=== PATIENT | female | born 1975 | race American Indian/Alaskan Native ===

== ENCOUNTER 2021-06-28 07:14 | Emergency (ER) | payer OTHER ==
[2021-06-28] MEDS ORDERED: THIAMINE 100 MG, FOLIC ACID 1 MG, MULTIPLE VITAMIN INJ, ADULT 10 ML in SODIUM CHLORIDE ... IV NR (08:00)
[2021-06-28 08:29] LABS: Basophils % (Auto) 0.6 % (0.0-1.8); Eosinophils # (Auto) 0.1 K/mm3 (0.0-0.4); Eosinophils % (Auto) 1.9 % (0.0-4.3); Hematocrit 39.5 % (30.3-42.9); Hemoglobin 13.6 gm/dl (10.1-14.3); Lymphocytes % (Auto) 47.5 % (13.4-35.0); Mean Corpuscular HGB Conc 34 % (30-34); Mean Corpuscular Volume 93 fl (79-97); Monocytes # (Auto) 0.5 K/mm3 (0.0-0.8); Monocytes % (Auto) 7.8 % (0.0-7.3); Platelet Count 259 K/mm3 (140-440); Red Blood Count 4.23 M/mm3 (3.65-5.03); Red Cell Distribution Width 13.7 % (13.2-15.2)
[2021-06-28 08:34] LABS: Amphetamine Screen,Urine Negative; Benzodiazepines Screen,Urine Negative; Cannabinoid Screen,Urine Negative; Cocaine Screen,Urine Negative; Methadone Screen,Urine Negative; Opiate Screen,Urine Negative
[2021-06-28 08:38] LABS: Alanine Aminotransferase 26 units/L (7-56); Albumin 3.9 g/dL (3.9-5); BUN/Creatinine Ratio 13; Blood Urea Nitrogen 9 mg/dL (7-17); Calcium 8.8 mg/dL (8.4-10.2); Hemolysis Index 10
[2021-06-28] MEDS ORDERED: LORazepam 2 MG/ML VIAL IV ONE (09:30)
--- NOTE | 2021-06-28 09:38 | Emergency Department Report ---
ED Alcohol HPI - General Chief Complaint: Medical Clearance Stated Complaint: MEDICAL CLEARANCE Time Seen by Provider: 06/28/21 07:39 Source: patient Mode of arrival: Ambulatory Limitations: No Limitations - History of Present Illness Initial Comments: 46-year-old female with a past medical history of hypertension and alcohol abuse presents to the hospital requesting help with alcohol detox. Patient states she drinks approximately 1 bottle of wine per day and occasional vodka use. Patient has a history of alcoholism in her family. She increase her alcohol intake when she moved to [place] at the age of [age] years old. She has a history of alcohol withdrawal tremors but denies seizures. She denies suicidal, homicidal ideation or psychosis. She is requesting outpatient detox because she has 8-year-old daughter to take care of at home. Last drink was last night. Patient has history of hypertension and compliant with her amlodipine 10 mg and hydrochlorothiazide 25 mg which she took prior to arrival. She feels mildly tremulous at this time with a mild headache. Patient took Excedrin prior to arrival. Patient called [facility] prior to arrival and she was advised to come to the ER for medical clearance - Related Data Home Medications Medication Instructions Recorded Confirmed Last Taken amLODIPine [Norvasc] 10 mg PO DAILY 06/28/21 06/28/21 Unknown hydroCHLOROthiazide [HCTZ] 25 mg PO QDAY 06/28/21 06/28/21 Unknown Previous Rx's Medication Instructions Recorded Last Taken Type chlordiazePOXIDE [Librium] 25 mg PO Q6H 4 Days #20 capsule 06/28/21 Unknown Rx Allergies Allergy/AdvReac Type Severity Reaction Status Date / Time No Known Allergies Allergy Unverified 06/28/21 08:40 ED Review of Systems ROS: Stated complaint: MEDICAL CLEARANCE Other details as noted in HPI Comment: All other systems reviewed and negative ED Past Medical Hx - Past Medical History Hx Hypertension: Yes Hx Headaches / Migraines: Yes - Surgical History Past Surgical History?: Yes Hx Cholecystectomy: Yes Additional Surgical History: gastric bypass, skin removal surgery - Social History Smoking Status: Never Smoker Substance Use Type: Alcohol - Medications Home Medications: Home Medications Medication Instructions Recorded Confirmed Last Taken Type amLODIPine [Norvasc] 10 mg PO DAILY 06/28/21 06/28/21 Unknown History chlordiazePOXIDE [Librium] 25 mg PO Q6H 4 Days #20 capsule 06/28/21 Unknown Rx hydroCHLOROthiazide [HCTZ] 25 mg PO QDAY 06/28/21 06/28/21 Unknown History ED Physical Exam - General Limitations: No Limitations - Other Other exam information: General: No acute distress Head: Atraumatic Eyes: normal appearance ENT: Moist mucous membranes Neck: Normal appearance, no midline tenderness Chest: Clear to auscultation bilaterally CV: Regular rate and rhythm Abdomen: Soft, normal bowel sounds, nontender, nondistended, no rebound or guarding Back: Normal inspection Extremity: Normal inspection, full range of motion Neuro: Alert O x 3, no facial asymmetry, speech clear, no gross motor sensory deficit. Mild tremor Psych: Appropriate behavior Skin: No rash ED Course Vital Signs 06/28/21 06/28/21 06/28/21 07:28 08:18 08:23 Temperature 98.1 F Pulse Rate 88 84 Respiratory 16 18 Rate Blood Pressure Blood Pressure 206/117 194/120 [Right] O2 Sat by Pulse 99 99 99 Oximetry 06/28/21 06/28/21 06/28/21 08:31 08:45 09:01 Temperature Pulse Rate Respiratory Rate Blood Pressure 194/120 194/120 187/109 Blood Pressure [Right] O2 Sat by Pulse 98 98 98 Oximetry 06/28/21 06/28/21 06/28/21 09:15 09:31 09:45 Temperature Pulse Rate 81 81 78 Respiratory 15 19 14 Rate Blood Pressure 187/109 163/76 137/70 Blood Pressure [Right] O2 Sat by Pulse 99 99 98 Oximetry 06/28/21 06/28/21 06/28/21 09:52 10:01 10:15 Temperature Pulse Rate 76 78 Respiratory 15 14 Rate Blood Pressure 156/101 156/101 146/87 Blood Pressure [Right] O2 Sat by Pulse 99 100 Oximetry 06/28/21 06/28/21 06/28/21 10:31 10:45 11:01 Temperature Pulse Rate 78 77 108 H Respiratory 16 15 13 Rate Blood Pressure 142/85 131/82 133/85 Blood Pressure [Right] O2 Sat by Pulse 100 99 99 Oximetry 06/28/21 06/28/21 11:15 11:31 Temperature Pulse Rate 81 92 H Respiratory 15 15 Rate Blood Pressure 139/92 139/68 Blood Pressure [Right] O2 Sat by Pulse 97 100 Oximetry - Consultations Consultation #1: 06/28/21 10:26 Case discussed with the event for mental health. Patient does not require patient mental health consultation since she is not suicidal, homicidal, and does not meet criteria for inpatient treatment. She recommends that patient is medically clear, provide copy labs, and then go over to [place]. Since patient does not want inpatient admission and there may be a delay until she can be placed in outpatient program it is recommended that she is provided medications to prevent alcohol withdrawal until she can be treated by the psychiatrist ED Medical Decision Making - Lab Data Result diagrams: 06/28/21 08:02 06/28/21 08:02 Lab Results 06/28/21 06/28/21 06/28/21 Range/Units 08:01 08:01 08:02 WBC 6.2 (4.5-11.0) K/mm3 RBC 4.23 (3.65-5.03) M/mm3 Hgb 13.6 (10.1-14.3) gm/dl Hct 39.5 (30.3-42.9) % MCV 93 (79-97) fl MCH 32 (28-32) pg MCHC 34 (30-34) % RDW 13.7 (13.2-15.2) % Plt Count 259 (140-440) K/mm3 Lymph % (Auto) 47.5 H (13.4-35.0) % [place] % (Auto) 7.8 H (0.0-7.3) % Eos % (Auto) 1.9 (0.0-4.3) % Baso % (Auto) 0.6 (0.0-1.8) % Lymph # (Auto) 3.0 (1.2-5.4) K/mm3 [place] # (Auto) 0.5 (0.0-0.8) K/mm3 Eos # (Auto) 0.1 (0.0-0.4) K/mm3 Baso # (Auto) 0.0 (0.0-0.1) K/mm3 Seg Neutrophils % 42.2 (40.0-70.0) % Seg Neutrophils # 2.6 (1.8-7.7) K/mm3 Sodium (137-145) mmol/L Potassium (3.6-5.0) mmol/L Chloride (98-107) mmol/L Carbon Dioxide (22-30) mmol/L Anion Gap mmol/L BUN (7-17) mg/dL Creatinine (0.6-1.2) mg/dL Estimated GFR ml/min BUN/Creatinine Ratio % Glucose (65-100) mg/dL Calcium (8.4-10.2) mg/dL Magnesium (1.7-2.3) mg/dL Total Bilirubin (0.1-1.2) mg/dL AST (5-40) units/L ALT (7-56) units/L Alkaline Phosphatase (35-129) units/L Total Protein (6.3-8.2) g/dL Albumin (3.9-5) g/dL Albumin/Globulin Ratio % HCG, Qual (Negative) Urine Color Straw (Yellow) Urine Turbidity Clear (Clear) Urine pH 7.0 (5.0-7.0) Ur Specific [place] 1.011 (1.003-1.030) Urine Protein <15 mg/dl (Negative) mg/dL Urine Glucose (UA) Neg (Negative) mg/dL Urine Ketones Neg (Negative) mg/dL Urine Blood Neg (Negative) Urine Nitrite Neg (Negative) Urine Bilirubin Neg (Negative) Urine Urobilinogen < 2.0 (<2.0) mg/dL Ur Leukocyte Esterase Neg (Negative) Urine WBC (Auto) < 1.0 (0.0-6.0) /HPF Urine RBC (Auto) 2.0 (0.0-6.0) /HPF U Epithel Cells (Auto) < 1.0 (0-13.0) /HPF Urine Bacteria (Auto) 1+ (Negative) /HPF Urine Mucus Few /HPF Urine Opiates Screen Negative Urine Methadone Screen Negative Ur Barbiturates Screen Negative Ur Phencyclidine Scrn Negative Ur Amphetamines Screen Negative U Benzodiazepines Scrn Negative Urine Cocaine Screen Negative U Marijuana (THC) Screen Negative Drugs of Abuse Note Disclamer Plasma/Serum Alcohol (0-0.07) % 06/28/21 06/28/21 06/28/21 Range/Units 08:02 08:02 08:02 WBC (4.5-11.0) K/mm3 RBC (3.65-5.03) M/mm3 Hgb (10.1-14.3) gm/dl Hct (30.3-42.9) % MCV (79-97) fl MCH (28-32) pg MCHC (30-34) % RDW (13.2-15.2) % Plt Count (140-440) K/mm3 Lymph % (Auto) (13.4-35.0) % [place] % (Auto) (0.0-7.3) % Eos % (Auto) (0.0-4.3) % Baso % (Auto) (0.0-1.8) % Lymph # (Auto) (1.2-5.4) K/mm3 [place] # (Auto) (0.0-0.8) K/mm3 Eos # (Auto) (0.0-0.4) K/mm3 Baso # (Auto) (0.0-0.1) K/mm3 Seg Neutrophils % (40.0-70.0) % Seg Neutrophils # (1.8-7.7) K/mm3 Sodium 138 (137-145) mmol/L Potassium 3.5 L (3.6-5.0) mmol/L Chlor[place] 102.1 (98-107) mmol/L Carbon Dioxide 30 (22-30) mmol/L Anion Gap 9 mmol/L BUN 9 (7-17) mg/dL Creatinine 0.7 (0.6-1.2) mg/dL Estimated GFR > 60 ml/min BUN/Creatinine Ratio 13 % Glucose 90 (65-100) mg/dL Calcium 8.8 (8.4-10.2) mg/dL Magnesium 2.00 (1.7-2.3) mg/dL Total Bilirubin 0.30 (0.1-1.2) mg/dL AST 38 (5-40) units/L ALT 26 (7-56) units/L Alkaline Phosphatase 98 (35-129) units/L Total Protein 8.5 H (6.3-8.2) g/dL Albumin 3.9 (3.9-5) g/dL Albumin/Globulin Ratio 0.8 % HCG, Qual Negative (Negative) Urine Color (Yellow) Urine Turbidity (Clear) Urine pH (5.0-7.0) Ur Specific [place] (1.003-1.030) Urine Protein (Negative) mg/dL Urine Glucose (UA) (Negative) mg/dL Urine Ketones (Negative) mg/dL Urine Blood (Negative) Urine Nitrite (Negative) Urine Bilirubin (Negative) Urine Urobilinogen (<2.0) mg/dL Ur Leukocyte Esterase (Negative) Urine WBC (Auto) (0.0-6.0) /HPF Urine RBC (Auto) (0.0-6.0) /HPF U Epithel Cells (Auto) (0-13.0) /HPF Urine Bacteria (Auto) (Negative) /HPF Urine Mucus /HPF Urine Opiates Screen Urine Methadone Screen Ur Barbiturates Screen Ur Phencyclidine Scrn Ur Amphetamines Screen U Benzodiazepines Scrn Urine Cocaine Screen U Marijuana (THC) Screen Drugs of Abuse Note Plasma/Serum Alcohol < 0.01 (0-0.07) % - Medical Decision Making Patient presents to the hospital requesting alcohol detox with significant elevated blood pressure and signs of tremors on examination. No tachycardia. Patient treated with Ativan and IV labetalol with improvement and alcohol withdrawal symptoms as well as improvement in blood pressure. Patient's labs only significant for mild hypokalemia. Pt states she feels better. Patient will be discharged home with copy of her paperwork signify medical clearance for alcohol detox. Patient will be prescribed a Librium taper to help with alcohol withdrawal symptoms until she can be definitive managed by [facility] psychiatrist. CIWA score 2 at discharge Critical Care Time: No Critical care attestation.: If time is entered above; I have spent that time in minutes in the direct care of this critically ill patient, excluding procedure time. ED Disposition Clinical Impression: Alcoholism, Medical clearance for psychiatric admission, Uncontrolled hypertension Disposition: 01 HOME / SELF CARE / HOMELESS Is pt being admited?: No Does the pt Need Aspirin: No Condition: Stable Instructions: Alcohol Abuse and Dependence Information, Adult, Hypertension (ED), Managing Your Hypertension Additional Instructions: Take the medication as prescribed. Follow-up with your doctor or doctor/clinic provided. Return if symptoms worsen as indicated by your discharge instructions. Prescriptions: chlordiazePOXIDE [Librium] 25 mg PO Q6H 4 Days #20 capsule Referrals: PRIMARY MD ELKIN [Primary Care Provider] - 3-5 Days MD [facility] [Other] - KERI Time of Disposition: 12:38
[2021-06-28 11:22] LABS: Bacteria,Urine 1+ /HPF (Negative); Bilirubin,Urine NEG (Negative); Blood,Urine NEG (Negative); Color,Urine Straw (Yellow); Mucus,Urine FEW /HPF; Protein,Urine <15 mg/dL mg/dL (Negative); Urobilinogen,Urine < 2.0 mg/dL (<2.0); WBC,Urine < 1.0 /HPF (0.0-6.0)
[2021-06-28] MEDS ORDERED: POTASSIUM CHLORIDE ER 20 MEQ TAB PO ONE (12:00)
[2021-06-28 13:03] VITALS: BP 145/95
== END 2021-06-28 13:03 | disposition home or self-care (01) ==
LOC: ED 07:14
DX: F10.20 Alcohol dependence, uncomplicated (principal); Z13.30 Encounter for screening examination for mental health and behavioral disorders, unspecified; I10 Essential (primary) hypertension
CPT/HCPCS: 36415; 80053; 80307; 81001; 83735; 84703; 85025; 96365; 96366; 96375; 99284; J2060; J3411; J7030; 80320; G0480

== ENCOUNTER 2021-09-07 03:46 | Emergency (ER) | payer OTHER ==
[2021-09-07 03:52] VITALS: BP 175/102
--- NOTE | 2021-09-07 04:53 | Cat Scan Report ---
CT HEAD WITHOUT CONTRAST INDICATION / CLINICAL INFORMATION: Headache. TECHNIQUE: All CT scans at this location are performed using CT dose reduction for ALARA by means of automated exposure control. COMPARISON: None available. FINDINGS: HEMORRHAGE: None. EXTRA-AXIAL SPACES: Normal in size and morphology for the patient's age. VENTRICULAR SYSTEM: Normal in size and morphology for the patient's age. CEREBRAL PARENCHYMA: No significant abnormality. No acute territorial infarct. MIDLINE SHIFT / HERNIATION: None. CEREBELLUM / BRAINSTEM: No significant abnormality. ORBITS: Normal as visualized. SOFT TISSUES: No significant abnormality. SKULL: No significant abnormality. PARANASAL SINUSES / MASTOID AIR CELLS: Normal as visualized. ADDITIONAL FINDINGS: None. IMPRESSION: No acute intracranial abnormality. Signer Name: Vaughn Ordaz MD Signed: 09/07/2021 4:49 AM Workstation Name: [id number]
[2021-09-07 05:20] LABS: Basophils # (Auto) 0.1 K/mm3 (0.0-0.1); Basophils % (Auto) 1.4 % (0.0-1.8); Eosinophils % (Auto) 0.1 % (0.0-4.3); Hematocrit 38.9 % (30.3-42.9); Hemoglobin 12.9 gm/dl (10.1-14.3); Lymphocytes # (Auto) 2.2 K/mm3 (1.2-5.4); Lymphocytes % (Auto) 32.6 % (13.4-35.0); Mean Corpuscular HGB Conc 33 % (30-34); Mean Corpuscular Volume 96 fl (79-97); Monocytes # (Auto) 0.8 K/mm3 (0.0-0.8); Monocytes % (Auto) 11.5 % (0.0-7.3); Platelet Count 234 K/mm3 (140-440); Red Blood Count 4.05 M/mm3 (3.65-5.03)
[2021-09-07 05:35] LABS: Alanine Aminotransferase 27 units/L (7-56); Albumin 4.4 g/dL (3.9-5); Blood Urea Nitrogen 13 mg/dL (7-17); Calcium 9.1 mg/dL (8.4-10.2); Hemolysis Index 2
[2021-09-07 05:50] LABS: BUN/Creatinine Ratio 19
--- NOTE | 2021-09-07 06:36 | Emergency Department Report ---
ED Headache HPI - General Chief Complaint: High BP Stated Complaint: HIGHBP/HEADACHE/BURPING Time Seen by Provider: 09/07/21 05:59 - History of Present Illness Initial Comments: 46-year-old female with known history of hypertension asthma department complaining of a 1 to 2-day history of dull throbbing headache to the right side abdomen bowel across the head in conjunction with her hypertension. She reports no fevers, chills, sweats but have had some blurred vision and dizziness. Due to follow-up with primary care provider today but did not want to wait to figure out what was going on with a headache Quality: mild Head Injury Location: parietal Recent Head Trauma: no recent headache/trauma Associated Symptoms: denies: facial pain, fever/chills, sinus infection, stiff neck, vision changes Allergies/Adverse Reactions: Allergies No Known Allergies Allergy (Verified 09/07/21 03:52) Home Medications: Ambulatory Orders amLODIPine [Norvasc] 10 mg PO DAILY 06/28/21 chlordiazePOXIDE [Librium] 25 mg PO Q6H 4 Days #20 capsule 06/28/21 hydroCHLOROthiazide [HCTZ] 25 mg PO QDAY 06/28/21 ED Review of Systems ROS: Stated complaint: HIGHBP/HEADACHE/BURPING Other details as noted in HPI Comment: All other systems reviewed and negative ED Past Medical Hx - Past Medical History Hx Hypertension: Yes Hx Headaches / Migraines: Yes - Surgical History Past Surgical History?: Yes Hx Cholecystectomy: Yes Additional Surgical History: gastric bypass, skin removal surgery - Social History Smoking Status: Never Smoker Substance Use Type: Alcohol - Medications Home Medications: Home Medications Medication Instructions Recorded Confirmed Last Taken Type amLODIPine [Norvasc] 10 mg PO DAILY 06/28/21 06/28/21 Unknown History chlordiazePOXIDE [Librium] 25 mg PO Q6H 4 Days #20 capsule 06/28/21 Unknown Rx hydroCHLOROthiazide [HCTZ] 25 mg PO QDAY 06/28/21 06/28/21 Unknown History ED Physical Exam - General Limitations: No Limitations General appearance: alert, in no apparent distress - Head Head exam: Present: atraumatic, normocephalic - Eye Eye exam: Present: normal appearance, PERRL, EOMI, other. Absent: nystagmus Pupils: Present: normal accommodation - ENT ENT exam: Present: normal exam, mucous membranes moist - Neck Neck exam: Present: normal inspection, full ROM - Respiratory Respiratory exam: Present: normal lung sounds bilaterally. Absent: respiratory distress, wheezes, rales, rhonchi, chest wall tenderness, accessory muscle use, decreased breath sounds - Cardiovascular Cardiovascular Exam: Present: regular rate, normal rhythm. Absent: systolic murmur, diastolic murmur, rubs, gallop - GI/Abdominal GI/Abdominal exam: Present: soft, normal bowel sounds - Extremities Exam Extremities exam: Present: normal inspection - Back Exam Back exam: Present: normal inspection - Neurological Exam Neurological exam: Present: alert, oriented X3 - Psychiatric Psychiatric exam: Present: normal affect, normal mood - Skin Skin exam: Present: warm, dry, intact, normal color. Absent: rash ED Course Vital Signs 09/07/21 03:48 Temperature 98.6 F Pulse Rate 135 H Respiratory 17 Rate Blood Pressure 175/102 [Right] O2 Sat by Pulse 100 Oximetry ED Medical Decision Making - Lab Data Result diagrams: 09/07/21 04:48 09/07/21 04:48 - Radiology Data Radiology results: report reviewed CT scan of the head normal - Medical Decision Making This patient presents with a headache most consistent with nonemergent headache. Differential diagnosis includes migraine versus tension type headache. No head ache red flags. Neurologic exam without evidence of meningismus, focal neurologic findings.Based on the patient's history and physical there is very low clinical suspicion for significant intracranial pathology. The headache was NOT sudden onset, NOT maximal at onset, there are NO neurologic findings, the patient does NOT have a fever, the patient does NOT have any jaw claudication, the patient does NOT endorse a clotting disorder, patient DENIES any trauma or eye pain and the headache is NOT associated with dizziness or ataxia. Presentation not consistent with acute intracranial bleed to include SAH (lack of risk factors, headache history). Presentation not consistent with acute PERFORATING MACHINE OPERATOR infection to include meningitis or brain abscess, Temporal arteritis unlikely, as is acute angle closure glaucoma given history and physical findings. Presentation not consistent with other acute, emergent causes of headache at this time. Plan to treat symptomatically with pain medication. No indication for imaging/LP at this time. Plan: pain medication, CT brain normal, serial reassessment Critical care attestation.: If time is entered above; I have spent that time in minutes in the direct care of this critically ill patient, excluding procedure time. ED Disposition Clinical Impression: Normal CT scan of head, HTN (hypertension), Headache Disposition: HOME / SELF CARE / HOMELESS Is pt being admited?: No Does the pt Need Aspirin: No Condition: Stable Instructions: Hypertension, Adult, [id number], Preventing Hypertension, Hypertension, Adult, Hypertension (ED) Additional Instructions: You have been evaluated in the emergency department today for headache. Your e valuation did not show evidence of medical conditions requiring emergent intervention at this time, and your pain improved with medication. We recommend that you take Motrin and Tylenol as needed for your pain. If needed you can alternate these medications so that you take 1 every 3 hours. To be sure to follow-up with your primary care provider within 2 days for Return to emergency department if you experience worsening uncontrolled pain, vision changes, recurrent vomiting, difficulty with normal activities, abnormal behavior, difficulty walking, numbness, weakness, or any other concerning symptoms. Referrals: PRIMARY CARE,MD [Primary Care Provider] - 24 Hours (Please keep your appointment with your doctor today to adjust your hypertensive medication and also give you medication for these headaches)
--- NOTE | 2021-09-08 11:08 | Electrocardiograph Report ---
[facility] Test Date: 2021-09-07 Test Time: 03:53:07 Pat Name: MATTY NEGRETE Department: Room: Gender: F It Lead: NURSE : 1975 Requested By: EYAL DUNCAN Order Number: [id number] Reading MD: Curtis Phillip Measurements Intervals [place] Rate: 131 P: 84 MI: 112 QRS: -80 QRSD: 144 T: 51 QT: 412 QTc: 610 Interpretive Statements Sinus tachycardia RBBB and LAFB Probable left ventricular hypertrophy ST elevation secondary to IVCD Prolonged QT interval No previous ECG available for comparison Electronically Signed On 09-08-2021 11:08:37 EST by Curtis Phillip
== END 2021-09-07 07:10 | disposition home or self-care (01) ==
LOC: ED 03:46
DX: G43.909 Migraine, unspecified, not intractable, without status migrainosus (principal); I10 Essential (primary) hypertension; Z72.89 Other problems related to lifestyle
CPT/HCPCS: 36415; 70450; 80053; 85025; 93005; 99284